=== PATIENT | male | born 1970 | race Caucasian/White ===

== ENCOUNTER 2019-07-13 07:01 | Emergency (ER) | payer BC ==
--- NOTE | 2019-07-13 07:35 | EDM.PDOC ---
ED HPI GENERAL MEDICAL PROBLEM - General Chief Complaint: Lower Extremity Injury/Pain Stated Complaint: POSSIBLE BROKEN LEFT FOOT Time Seen by Provider: 07/13/19 07:18 Source of Information: Reports: Patient History Limitations: Reports: No Limitations - History of Present Illness INITIAL COMMENTS - FREE TEXT/NARRATIVE: This is a 49-year-old gentleman who presents to the emergency room with a chief complaint of left foot pain. Patient states that last week he initially injured his foot while slipping in the middle the night. Patient states that he woke up the next morning with pain in his left heel but he was able to apply weight. Toward the end of the day the pain gets worse and goes to the middle of his lower leg. Patient states he has no swelling pain or any signs of infection. Patient has no previous injury to this leg. Duration: Week(s): (1) Location: Reports: Lower Extremity, Left Quality: Reports: Ache Severity: Moderate Improves with: Reports: None Worsens with: Reports: Movement Context: Reports: Trauma Associated Symptoms: Reports: No Other Symptoms left foot Pain Score (Numeric/FACES): 2 - Related Data Allergies Allergy/AdvReac Type Severity Reaction Status Date / Time No Known Allergies Allergy Verified 07/13/19 07:26 Home Meds: Home Meds . [No Known Home Meds] 07/13/19 [History] Review of Systems - Review of Systems Review Of Systems: See Below Constitutional: Reports: No Symptoms Eyes: Reports: No Symptoms Ears: Reports: No Symptoms Nose: Reports: No Symptoms Mouth/Throat: Reports: No Symptoms Respiratory: Reports: No Symptoms Cardiovascular: Reports: No Symptoms GI/Abdominal: Reports: No Symptoms Genitourinary: Reports: No Symptoms Musculoskeletal: Reports: Leg Pain, Foot Pain Skin: Reports: No Symptoms Neurological: Reports: No Symptoms Psychiatric: Reports: No Symptoms ED EXAM, GENERAL - Physical Exam Exam: See Below Exam Limited By: No Limitations General Appearance: Alert, WD/WN, No Apparent Distress Eye Exam: Bilateral Eye: Normal Fundi, Normal Inspection, PERRL Ears: Normal External Exam, Normal Canal, Hearing Grossly Normal, Normal TMs Ear Exam: Bilateral Ear: Auricle Normal, Canal Normal, TM normal Nose: Normal Inspection, Normal Mucosa, No Blood Throat/Mouth: Normal Inspection, Normal Lips Head: Atraumatic, Normocephalic Neck: Normal Inspection Respiratory/Chest: No Respiratory Distress, Lungs Clear, Normal Breath Sounds, No Accessory Muscle Use Cardiovascular: Normal Peripheral Pulses, Regular Rate, Rhythm GI/Abdominal: Normal Bowel Sounds, Soft, Non-Tender (Male) Exam: Deferred Rectal (Males) Exam: Deferred Back Exam: Normal Inspection, Full Range of Motion Extremities: Normal Inspection, No Pedal Edema, Leg Pain, Limited Range of Motion. No: Normal Range of Motion, Slow Capillary Refill, Joint Swelling, Arm Pain, Increased Warmth, Mottled, Pallor, Redness Neurological: Alert, Oriented, CN II-XII Intact, Normal Cognition, Normal Reflexes. No: Disoriented, Slow to Respond, Unresponsive Psychiatric: Normal Affect, Normal Mood Skin Exam: Warm, Dry, Intact, Normal Color Lymphatic: No Adenopathy Course - Vital Signs Text/Narrative:: Patient has pain to his left foot after injuring it a week ago has not had any rest. X-rays are normal. Strain to foot is diagnosed Last Recorded V/S: Last Vital Signs Temp 97.2 F 07/13/19 07:17 Pulse 82 07/13/19 07:17 Resp 16 07/13/19 07:17 BP 126/89 07/13/19 07:17 Pulse Ox 99 07/13/19 07:17 Departure - Departure Time of Disposition: 08:59 Disposition: Home, Self-Care 01 Condition: Good Clinical Impression: Strain of foot, left - Discharge Information Instructions: Ankle Sprain Referrals: PCP,None [Primary Care Provider] - Forms: ED Department Discharge Additional Instructions: 1. Use hard soled shoe for ambulation 2 Follow-up with primary care physician as needed Sepsis Event Note - Evaluation Sepsis Screening Result: No Definite Risk - Focused Exam Vital Signs: Vital Signs Temp Pulse Resp BP Pulse Ox 07/13/19 07:17 97.2 F 82 16 126/89 99 Date Exam was Performed: 07/13/19 Time Exam was Performed: 09:08
--- NOTE | 2019-07-13 08:15 | CR ---
Left foot: 2 views left foot were obtained. Comparison: No prior foot exam is available. Small bony density is identified off the IP joint of the 1st digit compatible with old injury. Joint spaces are preserved. No acute fracture or other abnormality is appreciated. Impression: 1. Old bony density as noted above. 2. 2 view left foot study is otherwise unremarkable. Diagnostic code #2 This report was dictated in MDT
== END 2019-07-13 09:27 | disposition home or self-care (01) ==
LOC: MW.ED 07:01
DX: S96.912A Strain of unspecified muscle and tendon at ankle and foot level, left foot, initial encounter (principal); W18.40XA Slipping, tripping and stumbling without falling, unspecified, initial encounter
CPT/HCPCS: 73620-26-LT; 73620-LT; 99283; 99283-25

== ENCOUNTER 2023-11-13 07:23 | Day surgery (SDC) | payer BC ==
[2023-11-13] MEDS: Lactated Ringers 1,000 ML IV SCH (08:03)
[2023-11-13] MEDS ORDERED: propofoL 50 ML ONE (10:07)
[2023-11-13] MEDS ORDERED: dexmedeTOMIDine HCl 200 MCG/2 ML SDV ONE (10:37)
[2023-11-13] MEDS ORDERED: Propofol 200 MG/20 ML SDV ONE (10:48)
[2023-11-13] MEDS ORDERED: Lactated Ringers 1,000 ML IV SCH (11:30)
== END 2023-11-13 12:15 | disposition home or self-care (01) ==
LOC: MW.SDS 07:23
PROVIDERS: ATTEND Surgery
DX: Z12.11 Encounter for screening for malignant neoplasm of colon (principal); R19.5 Other fecal abnormalities; D12.5 Benign neoplasm of sigmoid colon; F17.210 Nicotine dependence, cigarettes, uncomplicated; F17.290 Nicotine dependence, other tobacco product, uncomplicated
CPT/HCPCS: 45385; J2704; J7120; 00811; J3490

== ENCOUNTER 2024-01-14 09:50 | Emergency (ER) | payer BC ==
[2024-01-14] MEDS: Acetaminophen 500 MG Tab PO STA (10:42)
[2024-01-14] MEDS: Magnesium Sulfate/Water Premix 2 GM in Premix Bag 1 BAG IV STA (10:43)
[2024-01-14] MEDS: diphenhydrAMINE 50 MG/ML SDV IVPUSH STA (10:43)
[2024-01-14] MEDS: Metoclopramide 10 MG/2 ML SDV IVPUSH STA (10:43)
[2024-01-14 11:01] LABS: BASOPHILS ABSOLUTE AUTO 0.05 K/uL (0.00-0.20); BASOPHILS PERCENT AUTO 0.5 % (0.0-1.0); EOSINOPHILS ABSOLUTE AUTO 0.02 K/uL (0.00-0.45); EOSINOPHILS PERCENT AUTO 0.2 % (0.0-6.0); HEMATOCRIT 43.5 % (42.0-52.0); HEMOGLOBIN 15.5 g/dL (14.0-18.0); IMMATURE GRAN ABSOLUTE AUTO 0.02 K/uL (0.00-0.05); IMMATURE GRAN PERCENT AUTO 0.2 % (0.0-0.4); LYMPHOCYTES ABSOLUTE AUTO 2.51 K/uL (1.00-4.80); LYMPHOCYTES PERCENT AUTO 22.6 % (24.0-44.0); MEAN CORPUSCULAR HEMOGLOBIN 32.8 pg (28.0-32.0); MEAN CORPUSCULAR HGB CONC 35.6 g/dL (32.0-36.0); MEAN PLATELET VOLUME 9.6 fL (9.4-12.4); MONOCYTES ABSOLUTE AUTO 0.64 K/uL (0.00-0.80); MONOCYTES PERCENT AUTO 5.8 % (0.0-8.0); NEUTROPHILS ABSOLUTE AUTO 7.86 K/uL (1.80-7.70); NEUTROPHILS PERCENT AUTO 70.7 % (41.0-71.0); PLATELET COUNT,PLT 246 K/uL (150-400); RED BLOOD CELL COUNT 4.73 M/uL (4.52-5.90)
[2024-01-14 11:20] LABS: A/G RATIO 1.1 (0.9-1.6); ALBUMIN 4.2 g/dL (3.4-5.0); CALCIUM 9.8 mg/dL (8.5-10.1); CREATININE 0.8 mg/dL (0.8-1.3); EST CRCL DRUG DOSING (CG) 106.94 mL/min; PROTEIN TOTAL,TP 8.1 g/dL (6.4-8.2)
== END 2024-01-14 12:15 | disposition home or self-care (01) ==
LOC: MW.ED 09:50
DX: G43.909 Migraine, unspecified, not intractable, without status migrainosus (principal); Z75.8 Other problems related to medical facilities and other health care; Z87.891 Personal history of nicotine dependence
CPT/HCPCS: 36415; 70450; 80053; 85025; 96365; 96375; 99284; A9270; J1200; J2765; J3475; 99283

== ENCOUNTER 2024-09-19 06:35 | Emergency (ER) | payer BC ==
[2024-09-19] MEDS: Ondansetron 4 MG Tab.DIS PO ONE (07:54)
== END 2024-09-19 07:56 | disposition home or self-care (01) ==
LOC: MW.ED 06:35
DX: M25.562 Pain in left knee (principal); Z75.3 Unavailability and inaccessibility of health-care facilities; W01.0XXA Fall on same level from slipping, tripping and stumbling without subsequent striking against object, initial encounter
CPT/HCPCS: 73562; 99283; A9270; 99282

== ENCOUNTER 2025-02-14 09:18 | Emergency (ER) | payer BC | END 2025-02-14 13:14 | disposition home or self-care (01) | LOC: MW.ED 09:18 | DX: S22.31XA Fracture of one rib, right side, initial encounter for closed fracture (principal); E27.8 Other specified disorders of adrenal gland; F17.200 Nicotine dependence, unspecified, uncomplicated; W19.XXXA Unspecified fall, initial encounter | CPT/HCPCS: 71250; 72131; 99283; A9270 ==